=== PATIENT | female | born 1950 | race Caucasian/White ===

== ENCOUNTER → 2023-09-29 11:12 | Outpatient (REF) | payer MEDICARE, OTHER, SELFPAY | LOC: RAD 11:12 | PROVIDERS: ATTENDING PHYSICIAN Internal Medicine | DX: R05.1 Acute cough (principal) | CPT/HCPCS: 71046 ==

== ENCOUNTER 2023-10-08 03:43 | Inpatient (IN) | payer MEDICARE, OTHER, SELFPAY ==
[2023-10-07 21:05] VITALS: BP 161/68
[2023-10-07] MEDS: TYLENOL 650 MG PO (21:09)
[2023-10-07 21:30] LABS: % Basophils 0.3 % (0-2); % Eosinophils 3.2 % (0-6); % Immature Granulocytes 0.4 % (0-0.5); % Lymphocytes 11.6 % (20.5-51.1); % Monocytes 7.3 % (1.7-9.3); % Neutrophils 77.2 % (42.2-75.2); Absolute Eosinophils 0.5 10^3/uL (0-0.7); Absolute Immature Granulocytes 0.1 10^3/uL (0-0.05); Absolute Lymphocytes 1.7 10^3/uL (1.2-3.4); Hematocrit 35.4 % (37.0-47.0); Mean Corp Hgb Conc. 33.9 g/dL (33.0-37.0); Mean Corpuscular Hgb 28.8 pg (27.0-31.0); Mean Corpuscular Volume 84.9 fL (81.0-99.0); Mean Platelet Volume 8.4 fL (7.4-10.4); Nucleated Red Blood Cells % 0 %; Platelet Count 287 10^3/uL (130-400); Red Blood Cell Count 4.17 10^6/uL (4.20-5.40); Red Cell Dist. Width 13.7 % (11.5-14.5); White Blood Cell Count 14.2 10^3/uL (4.8-10.8)
[2023-10-07 21:49] LABS: ALT (SGPT) 33 U/L (0-35); AST (SGOT) 28 U/L (14-36); Albumin 3.4 g/dl (3.5-5.0); Alkaline Phosphatase 83 U/L (38-126); Blood Urea Nitrogen 15 mg/dl (7-17); Calcium 8.9 mg/dl (8.4-10.2); Carbon Dioxide 32 mmol/L (22-30); Chloride 98 mmol/L (98-107); Glucose 110 mg/dl (70-99); Potassium 3.5 mmol/L (3.5-5.1); Sodium 137 mmol/L (135-145); Total Protein 6.2 g/dl (6.3-8.2); eGFR > 60.00
--- NOTE | 2023-10-07 23:10 | ED.GENMED ---
History of Present Illness
General
Chief Complaint: Breathing Problem
Source: patient
Exam Limitations: none
Time Seen by Provider: 10/07/23 22:56
Travel History
Have you had any contact with someone who has COVID-19?: No
Do you have any symptoms of coronavirus? Fever > 100 degrees, chills, cough, shortness of breath, sore throat, loss of taste or smell, muscle aches, or headache?: No
History of Present Illness
History of Present Illness:
This is a 73 year old female that comes in with c/o Fever, cough and left sided rib pain. States that she has been sick since Sep 07. States that the PCP was treating her for a sinus infection and gave her Amoxicillin. States that she also had a
Upper respiratory infection. States that she had several relapses. States that she saw the PCP the end of Sep and she felt that maybe she just had inflammation in the chest and place her on a steroid taper. States that she was told to wait for a
chest X-ray until 7-10 days had past. States that last night when she was in bed she heard something pop in the left chest and has had pain there ever since. States that she has also been using Mucinex Fast Max. States that she has a fever, chest
pain, SOB, headache and lightheadedness. Denies any chills, abd pain, nausea, vomiting, diarrhea, dizziness, urinrary burning.
Past History
Past History
ED Past Medical History: Asthma (illness induced asthma), GERD, HTN, Hypercholesterolemia, Psychiatric (Anxiety, Depression) and Other (Thyroid nodules , Chronic cough, )
ED Past Surgical History: Other (Deviated septum, Left eye surgery)
Social History
Tobacco: 2nd hand smoke exposure
Alcohol: Occasional
Drug: None
Personal:
Living: with family
Employment: Employed
Family History
Family History: Diabetes; Negative Early CAD
Review of Systems
Review of Systems
All Other Systems: ROS reviewed and negative except as documented in HPI and ROS
Constitutional: Reports fever; Denies chills
EENT: Reports no symptoms
Respiratory: Reports cough and trouble breathing
Cardiac: Reports chest pain
ABD/GI: Reports no symptoms; Denies abdominal pain, nausea, vomiting or diarrhea
: Reports no symptoms; Denies dysuria, frequency or urgency
Musculoskeletal: Reports no symptoms
Skin: Reports no symptoms
Neurological: Reports other (Lightheaded); Denies dizzy or headache
Psychiatric: Reports no symptoms
Phy Exam
General Physical Exam
General Presentation: mild distress
General age: appears stated age
General Skin: warm and dry
General Habitus: elderly
General Mental: alert
General Hydration: appears well hydrated
ENT Exam
ENT Exam: TM's normal, pharynx normal and neck supple
Eye Exam
Eye Exam: EOMI
Cardiovascular Exam
Cardiovascular Exam: regular rate/rhythm, no edema and normal peripheral pulses
Pulmonary Exam
Pulmonary Exam: no respiratory distress, chest non tender, no rhonchi, no wheezing and other (Fine crackles right base)
Gastrointestinal Exam
Gastrointestinal Exam: normal bowel sounds, non tender, soft, no organomegaly, no pulsatile mass and non distended
Musculoskeletal Exam
Musculoskeletal Exam: full ROM and no edema
Skin Exam
Skin Exam: normal color, warm/dry, no rash and no petechia
Psychiatric Exam
Psychiatric Exam: normal mood/affect
Scores
Heart Failure Risk
Heart Failure Risk Score: Not Applicable
Course
Orders/Labs/Results
Orders:
Orders
10/07/23 21:06
CR Chest - 2 Views Urgent
Comment:
Reason For Exam: respiratory distress
10/07/23 21:08
Acetaminophen [Tylenol] 650 mg PO NOW STA
10/07/23 21:09
Acetaminophen [Tylenol] 650 mg .ROUTE .STK-MED ONE
10/07/23 21:24
Complete Blood Count/With Diff Urgent
Comprehensive Metabolic Panel Urgent
10/07/23 23:15
Diphenhydramine [Benadryl] 50 mg IV NOW STA
Hydrocortisone Sod Succinate [Solu-Cortef] 200 mg IV NOW STA
10/07/23 23:25
Electrocardiogram (*1) Urgent
Reason for Study: Chest Pain
EKG- Treatment ONCE
10/07/23 23:40
Lactic Acid Urgent
Troponin I Urgent
Blood Culture Q30M
[facility] Source: Blood/Venous
Specimen Description:
10/08/23 01:00
CT Chest Pe Study Urgent
Reason For Exam: SOB, Cough, Fever Chest pain,
10/08/23 01:27
Blood Culture Q30M
[facility] Source: Blood/Venous
Specimen Description:
Abnormal Lab Results
10/07/23 10/07/23
21:24 23:40
WBC 14.2 H 10^3/uL
(4.8-10.8)
RBC 4.17 L 10^6/uL
(4.20-5.40)
Hct 35.4 L %
(37.0-47.0)
Abs Immat Gran (auto) 0.1 H 10^3/uL
(0-0.05)
Absolute Neuts (auto) 11.0 H 10^3/uL
(1.4-6.5)
Absolute Monos (auto) 1.0 H 10^3/uL
(0.1-0.6)
Neutrophils % 77.2 H %
(42.2-75.2)
Lymphocytes % 11.6 L %
(20.5-51.1)
Carbon Dioxide 32 H mmol/L
(22-30)
Glucose 110 H mg/dl
(70-99)
Lactic Acid 0.6 L mmol/L
(0.7-2.0)
Total Protein 6.2 L g/dl
(6.3-8.2)
Albumin 3.4 L g/dl
(3.5-5.0)
10/07/23 21:24
10/07/23 21:24
Leukocytosis, Carbon dioxide slightly elevated. Glucose nonfasting. Total Protein very slightly low. Albumin very slightly low.
Lactic acid normal at 0.6, troponin <0.012
Vital Signs
Initial and Last Documented VS:
Initial Vital Signs
Temp Pulse Resp BP Pulse Ox
101.1 F H 95 20 161/68 97
10/07/23 21:05 10/07/23 21:05 10/07/23 21:05 10/07/23 21:05 10/07/23 21:05
Last Documented Vital Signs
Temp Pulse Resp BP Pulse Ox
98.4 F 79 17 116/62 95
10/08/23 00:06 10/08/23 01:31 10/08/23 01:31 10/08/23 01:31 10/08/23 01:34
MDM/Problems Addressed
Differential Diagnosis Includes:
PNA, PE,
MDM/Problems Addressed:
This is a 73 year old female that comes in with c/o fever, SOB and left sided rib pain. States that she has been sick since Sep 07. States that she has been on antibiotics and steroid and she is getting worse. States that she is on a steroid taper
at this time. Then last night she heard a pop when she was in bed when she was coughing.
Will get labs, CT chest.
Back into see patient. Explained that her CT shows multiple things. She is negative for PE but there is a pericarditis which is most likely due to a viral illness and a small pericaridial effusion. Also as stated by the Doctor from [facility] there
is mild Pulmonary edema, bilateral pleural effusions. Will give patient Lasix and Toradol and admit. Hospitalist notified.
Chronic conditions affecting care: Asthma
Acute Exacerbation and/or Progression of Chronic Illness: Asthma
*Radiology
Radiology exam reviewed: radiology read reviewed (CT chest [facility]- Technically adequate quality of the contrast bolus. No evidence of acute pulmonary embolus. Small circumferential pericardial effusion with epipericardial fat stranding. Reactive
mediastinal lymph noes. Findings suggest an acute pericarditis. Small left and trace right layering ), all reviewed NAD by ED Provider (CT cont- layering pleural effusions. MIld compressive atelectasis of the left lower lobe. No evidence of
pneumonia. NOrmal heart size. No coronary artery calcification. Normal caliber and contour of the thoracic aorta. No acute osseous abnormality. Chronic-appearing T12 superior endplate compression) and other (C cont- deformity. The visualized upper
abdomen demonstrates an acute abnormality)
*Pulse Oximetry
Patient hypoxic: yes
Comment: 90% on room air
*Critical Care Note
Total Time (30-74mins, 75-104mins- exclusive of procedures): Not Applicable
ED Attending Note
-
Portions of this chart may have been created with voice recognition software.� Occasional wrong word or��sound alike� substitutions may have occurred due to the inherent limitations of voice recognition software.
Discharge Plan
Departure
Patient Disposition: Admit
Date of Disposition: 10/08/23
Time of Disposition: 02:21
Admit to: Telemetry
Presentation/result/management discussed w/ accepting MD/DO: Hospitalist
Patient with high blood pressure during this ER visit?: No
Condition: Good
Covid-19: Negative COVID-19
Discharge Problem:
Pericarditis, MIld Pulmonary edema, Pleural effusion, Small pericardial effusion
Prescriptions:
No Action
multivitamin [Multi-Day] 1 EACH tablet
1 ea PO DAILY
lutein 20 MG capsule
25 mg PO DAILY
Meli
1 tab PO PRN PRN (Reason: allergy)
Aspirin
81 mg PO DAILY
Calcium
2 tab PO DAILY
Fish Oil
1 tab PO BID
HydrALAZINE
1 tab PO DAILY
Lexapro:
10 mg PO DAILY
Potassium Chloride
1 tab PO DAILY
Co Q-10
1 tab PO DAILY
methylprednisolone [Medrol ([place])] 4 MG tablets,dose pack
4 tab PO . DIRECT Qty: 1 0RF
albuterol sulfate [Proventil HFA] 90 MCG/PUFF HFA aerosol inhaler
1 puff inhalation Q4HPRN PRN (Reason: shortness of breath) Qty: 1 0RF
sulfamethoxazole-trimethoprim 1 TABLET tablet
1 tab PO BID Qty: 14 0RF
metronidazole 500 MG tablet
500 mg PO TID Qty: 21 0RF
Referrals:
Coleen Chowdhury MD [Family Provider] -
Interventions
Interventions:
*Risk Screen - Suicide Last Done: 10/07/23 21:05
*General Assessment Last Done: 10/07/23 21:05
*Neglect/Abuse Screening Last Done: 10/07/23 21:05
*ED COVID-19 Vaccine History Last Done: 10/08/23 01:31
ED- Cardiac Assessment Last Done: 10/08/23 00:34
ED- Pulmonary Assessment Last Done: 10/08/23 01:38
[2023-10-07] MEDS: SOLU-CORTEF 200 MG IV (23:58)
[2023-10-07] MEDS: BENADRYL 50 MG IV (23:58)
[2023-10-08] VITALS (16 sets, daily range): BP systolic 79–144; BP diastolic 39–90; BMI 43.9; BMI 42.2
[2023-10-08 00:18] LABS: Lactic Acid 0.6 mmol/L (0.7-2.0)
[2023-10-08 00:30] LABS: Troponin I < 0.012 ng/ml
--- NOTE | 2023-10-08 02:23 | HPS.HSE ---
Family Physician
-
Family Physician: Coleen Chowdhury
Chief Complaint
-
shortness of breath
History of Present Illness
Ms. Fatuma Styles is a 73 yo woman with hx asthma, GERD, HTN, HLD, anxiety/depression who presents to the ER with complaint of chest tightness and cough x 1 month. Patient was seen by PCP one month ago. Flu and covid testing negative. She was
thought to have bronchitis and given amoxicillin. Patient reports slight improvement initially and then full return of symptoms. She was then prescribed a prednisone course which is now complete. She has not been checked her temperature at home.
The chest tightness has persisted and increased today causing her to come to the ER. Associated with shortness of breath. + pleuritic chest pain. + intermittent headaches; she has been taking NSAIDs.
No nausea/vomiting/diarrhea. No new rash.
Medical History
Past Medical History
Past Medical History: Reports Other ( asthma, GERD, HTN, HLD, anxiety/depression)
Past Surgical History: Reports Other (deviated septum, left eye surgery )
Social History
Tobacco: Other (2nd hand smoke exposure )
Alcohol: Occasional
Family History
Family History: Not pertinent
Allergies / Home Medications
Allergies reflects when Allergies were last updated in [facility].
Home Medications with original date entered in [facility]
Allergy/Medication List:
Allergies
Allergy/AdvReac Type Severity Reaction Status Date / Time
amoxicillin [From Augmentin] Allergy Unknown Verified 10/07/23 23:47
clavulanic acid Allergy Unknown Verified 10/07/23 23:46
[From Augmentin]
Iodinated Contrast Media Allergy Hives Verified 10/07/23 23:46
[Iodinated Contrast Media -
IV Dye]
iohexol Allergy Hives Verified 10/07/23 23:56
levofloxacin [From Levaquin] Allergy Rash Verified 10/07/23 23:46
Tetracyclines Allergy Unknown Verified 10/07/23 23:46
Home Medications
lutein 20 mg capsule 25 mg PO DAILY 06/19/16
multivitamin (Multi-Day tablet) 1 ea PO DAILY 06/19/16
Meli 1 tab PO PRN PRN allergy 12/24/17
Aspirin 81 mg PO DAILY 12/24/17
Calcium 2 tab PO DAILY 12/24/17
Co Q-10 1 tab PO DAILY 12/24/17
Fish Oil 1 tab PO BID 12/24/17
HydrALAZINE 1 tab PO DAILY 12/24/17
Lexapro: 10 mg PO DAILY 12/24/17
Potassium Chloride 1 tab PO DAILY 12/24/17
albuterol sulfate 90 mcg/actuation aerosol inhaler (Proventil HFA) 1 puff inhalation Q4HPRN PRN shortness of breath ##1 12/24/17
methylprednisolone 4 mg tablets in a dose pack (Medrol ([place])) 4 tab PO . DIRECT ##1 12/24/17
metronidazole 500 mg tablet 500 mg PO TID #21 tabs 05/24/20
sulfamethoxazole 800 mg-trimethoprim 160 mg tablet 1 tab PO BID #14 tabs 05/24/20
Review of Systems
-
History Source: Patient
A 12 point ROS was completed and negative except as noted: Yes
Physical Exam
Vital Signs
Vital Signs
Temp Pulse Resp BP Pulse Ox
98.4 F 79 17 116/62 95
10/08/23 00:06 10/08/23 01:31 10/08/23 01:31 10/08/23 01:31 10/08/23 01:34
Physical Exam
General: No Apparent Distress and Conversant
HEENT: PERRLA
Respiratory: Clear; No Wheezes
Cardiac: Regular Rhythm
GI: Soft and Non Tender
Musculoskeletal: No Edema
Skin: Warm and Dry; No Rash
Neuro: AO x 3
Psych: Calm
Laboratory Results
-
10/07/23 21:24
10/07/23 21:24
Laboratory Results
Lactic Acid 0.6 mmol/L (0.7-2.0) L 10/07/23 23:40
Total Bilirubin 1.0 mg/dl (0.2-1.3) 10/07/23 21:24
AST 28 U/L (14-36) 10/07/23 21:24
ALT 33 U/L (0-35) 10/07/23 21:24
Alkaline Phosphatase 83 U/L (38-126) 10/07/23 21:24
Troponin I < 0.012 ng/ml 10/07/23 23:40
Data Reviewed
-
Diagnostic Radiology: Report Reviewed by me
Lab Data: Labs Reviewed by me
Impression/Plan
-
Ms. Fatuma Styles is a 73 yo woman with hx asthma, GERD, HTN, HLD, anxiety/depression who presents to the ER with complaint of URI symptoms x one month.
Triage VS: T 101.1, P 95, RR 20, BP 161/68, SpO2 97%
LABS: WBC 14.2, Hg 12.0, PLT 287, Na 137, K+ 3.5, CO2 32, BUN 15, Cr 0.7, Glucose 110, lactate 0.6, liver enzymes WNL, Trop < 0.012
EKG: NSR @ 78, no ST elevation/depresion, t wave flattening
CT Chest: no evidence of acute PE. small circumferential pericardial effusion with epipericardial fat stranding. Reactive mediastinal lymph nodes. Findings suggest an acute pericarditis. Small left and trace right layering pleural effusions.
Mild compressive atelectasis of the left lower lobe. No evidence of pneumonia...
MAR: benadryl and hydrocortisone (pre CT), lasix, toradol and tylenol
Acute pericarditis
Fever
Sepsis
-likely viral origin
-receiving Toradol now, will start standing motrin and colchicine later this morning
-TTE
-cardiology consult
GERD
-start GI PPx, standing protonix
HTN
-SALES ENGINEER ACCOUNT MANAGER HCTZ
HLD
-SALES ENGINEER ACCOUNT MANAGER Lipitor
Anxiety/Depression
-SALES ENGINEER ACCOUNT MANAGER Abilify
-SALES ENGINEER ACCOUNT MANAGER Lexapro
DVT PPx SCD
FULL CODE
[2023-10-08] MEDS: TORADOL 30 MG IV (02:35)
[2023-10-08 06:27] LABS: % Basophils 0.3 % (0-2); % Eosinophils 0.6 % (0-6); % Immature Granulocytes 0.5 % (0-0.5); % Lymphocytes 7.7 % (20.5-51.1); % Monocytes 2.7 % (1.7-9.3); % Neutrophils 88.2 % (42.2-75.2); Absolute Eosinophils 0.1 10^3/uL (0-0.7); Absolute Immature Granulocytes 0.1 10^3/uL (0-0.05); Absolute Lymphocytes 0.9 10^3/uL (1.2-3.4); Absolute Monocytes 0.3 10^3/uL (0.1-0.6); Absolute Neutrophils 9.8 10^3/uL (1.4-6.5); Hematocrit 35.3 % (37.0-47.0); Hemoglobin 11.7 g/dL (12.0-16.0); Mean Corp Hgb Conc. 33.1 g/dL (33.0-37.0); Mean Corpuscular Hgb 28.5 pg (27.0-31.0); Mean Corpuscular Volume 86.1 fL (81.0-99.0); Mean Platelet Volume 8.7 fL (7.4-10.4); Nucleated Red Blood Cells % 0 %; Platelet Count 267 10^3/uL (130-400); Red Cell Dist. Width 13.6 % (11.5-14.5); White Blood Cell Count 11.1 10^3/uL (4.8-10.8)
[2023-10-08 06:31] LABS: Blood Urea Nitrogen 17 mg/dl (7-17); Carbon Dioxide 30 mmol/L (22-30); Chloride 99 mmol/L (98-107); Estimated Creatinine Clearance 89 ml/min; Glucose 152 mg/dl (70-99); Magnesium 2.4 mg/dl (1.6-2.3); Potassium 3.9 mmol/L (3.5-5.1); Sodium 137 mmol/L (135-145); eGFR > 60.00
[2023-10-08 06:45] LABS: Procalcitonin < 0.05 ng/ml (0.0-0.25)
[2023-10-08] MEDS: PROTONIX 40 MG PO (07:46)
[2023-10-08] MEDS: COLCHICINE 0.599999999999999978 MG PO ×2 (07:47→20:51)
[2023-10-08] MEDS: LIPITOR 10 MG PO (07:48)
[2023-10-08] MEDS: LEXAPRO 20 MG PO (07:49)
[2023-10-08] MEDS: ORETIC PO (07:49)
--- NOTE | 2023-10-08 07:50 | EDRN ---
Cornell PA states HOLD HCTZ
--- NOTE | 2023-10-08 08:04 | CON.CAR ---
Addendum entered and electronically signed by Brissa Mejia DO 10/08/23 18:26:
I saw and examined the patient.
The Director Medical Safety's note was reviewed and I agree with the note.
Comment: Patient is a 73-year-old female with past medical history of hypertension, hyperlipidemia, anxiety/depression, fatty liver disease, obstructive sleep apnea, asthma who presented to [facility] due to multiple complaints over the
last month. States she started with URI/sinusitis symptoms on 09/07/23. She was started by PCP on amoxicillin. During her 10 day abx course, she states she 'relapsed' with worsening symptoms 2 separate times. One week after abx was seen again by PCP
and placed on prednisone taper. She finished this on Thursday. She has been coughing and states she developed L sided chest discomfort with a 'popping' sensation several days ago. Some pleuritic component as well. She has been using nebs and mucinex.
She has also had recurrence of fevers. CT chest negative for PE however shows small B/L pleural effusions and findings concerning for pericarditis with small pericardial effusion. Covid and flu negative. Cardiology consulted for evaluation.
General:�No Apparent Distress, Comfortable on RA
HEENT:�Normocephalic, Anicteric, mmm
Respiratory:�bronchovesicular BS, clear
Cardiac:�S1/S2 and Regular Rhythm no murmur or rub
GI:�Soft, Non Tender, Non Distended and Normal Bowel Sounds
Musculoskeletal:�No Edema. no rash
Neuro:�AO x 3
Echocardiogram with IV Definity: Normal left ventricular chamber size. Normal left ventricular systolic function. Normal regional wall motion. Mild concentric left ventricular hypertrophy. Left ventricular ejection fraction is 55-60% by Morin's
method of discs. Normal diastolic function. Mild tricuspid regurgitation. Small pericardial effusion with no echocardiographic evidence of hemodynamics �compromise.
�
Plan:
Patient is a 73-year-old female who presents due to 1 month of upper respiratory symptoms with negative COVID/Flu testing s/p 10 day amoxicillin course and prednisone taper presents with left-sided chest pain worse with deep inspiration and movement
suggestive of pericarditis with elevated CRP/ESR with pericardial effusion noted on CT and echo imaging
-Cardiac troponin undetectable, proBNP not elevated
-Small pericardial effusion without hemodynamic compromise
-CTA negative for pulmonary embolism, aortic pathology or pneumonia/Pro-[place] negative
-Continue Motrin 600 mg 3 times daily and colchicine 0.6 mg twice daily
-CT scan with small bilateral pleural effusions with proBNP not significantly elevated at 391
-Activity restrictions reviewed
-Outpatient cardiac follow-up to be arranged with Dr. Brown
-Discharge planning per primary
Original Note:
Consultation
Consultation Request
Date/Time Consultation Performed: 10/08/23
Requesting Provider: Dr. Taylor
Performing Provider: Una Alston PA-C for Dr. Mejia
Reason for Consultation: pericarditis
Medical History
-
Chief Complaint: fever, cough, CP
History of Present Illness:
Patient is a 73-year-old female with past medical history of hypertension, hyperlipidemia, anxiety/depression, fatty liver disease, obstructive sleep apnea, asthma who presented to [facility] due to multiple complaints over the last month.
States she started with URI/sinusitis symptoms on 09/07/23. She was started by PCP on amoxicillin. During her 10 day abx course, she states she 'relapsed' with worsening symptoms 2 separate times. One week after abx was seen again by PCP and placed on
prednisone taper. She finished this on Thursday. She has been coughing and states she developed L sided chest discomfort with a 'popping' sensation several days ago. Some pleuritic component as well. She has been using nebs and mucinex. She has also
had recurrence of fevers. CT chest negative for PE however shows small B/L pleural effusions and findings concerning for pericarditis with small pericardial effusion. Covid and flu negative. Cardiology consulted for evaluation.
PMH:
HTN
HLD
anxiety/depression
fatty liver
HARPAL
asthma
Past Medical History
Past Medical History: Other (in HPI)
Social History
Tobacco: Non-Smoker
Alcohol: None
Personal:
Living: With Family
Employment: Retired
Family History
Family History: Reviewed & Not Pertinent
Allergies / Home Medications
Allergy/AdvReac Type Severity Reaction Status Date / Time
amoxicillin [From Augmentin] Allergy Unknown Verified 10/07/23 23:47
clavulanic acid Allergy Unknown Verified 10/07/23 23:46
[From Augmentin]
Iodinated Contrast Media Allergy Hives Verified 10/07/23 23:46
[Iodinated Contrast Media -
IV Dye]
iohexol Allergy Hives Verified 10/07/23 23:56
levofloxacin [From Levaquin] Allergy Rash Verified 10/07/23 23:46
Tetracyclines Allergy Unknown Verified 10/07/23 23:46
Medication Instructions Recorded Confirmed Type
lutein 20 mg capsule 25 mg PO DAILY 06/19/16 10/08/23 History
multivitamin (Multi-Day tablet) 1 ea PO DAILY 06/19/16 10/08/23 History
Aspirin 81 mg PO DAILY 12/24/17 10/08/23 History
Co Q-10 1 tab PO DAILY 12/24/17 10/08/23 History
Lexapro: 20 mg PO DAILY 12/24/17 10/08/23 History
Potassium Chloride 2 tab PO DAILY 12/24/17 10/08/23 History
albuterol sulfate 90 mcg/actuation 1 puff inhalation Q4HPRN PRN 12/24/17 10/08/23 Rx
aerosol inhaler (Proventil HFA) shortness of breath ##1
Qvar RediHaler 80 mcg inhalation Q6HPRN PRN sob 10/08/23 10/08/23 History
aripiprazole 2 mg tablet (Abilify) 2 mg PO DAILY 10/08/23 10/08/23 History
ascorbic acid (vitamin C) 500 mg 500 mg PO BID 10/08/23 10/08/23 History
tablet (Vitamin C)
atorvastatin 10 mg tablet 10 mg PO DAILY 10/08/23 10/08/23 History
calcium 500 mg tablet 1,300 mg PO DAILY 10/08/23 10/08/23 History
cyclosporine 0.05 % eye drops in a 1 drp ophthalmic (eye) Q12H 10/08/23 10/08/23 History
dropperette (Restasis)
dextromethorphan-guaifenesin ER 60 60 - 1,200 tab PO BID 10/08/23 10/08/23 History
mg-1,200 mg tab,extend
release,12hr (Mucinex DM)
fluticasone propionate 50 1 spray intranasal DAILY 10/08/23 10/08/23 History
mcg/actuation nasal
spray,suspension
hydrochlorothiazide 25 mg tablet 25 mg PO DAILY 10/08/23 10/08/23 History
minoxidil 2 % topical solution 2 ml topical Q48H 10/08/23 10/08/23 History
turmeric 400 mg capsule 1,200 mg PO DAILY 10/08/23 10/08/23 History
vitamin B complex tab 10/08/23 History
Review of Systems
-
History Source: Patient
All other systems: Negative unless noted
Physical Exam
Vital Signs
Temp Pulse Resp BP Pulse Ox
98.1 F 75 16 110/75 94
10/08/23 06:55 10/08/23 07:49 10/08/23 06:15 10/08/23 07:49 10/08/23 06:15
Lab Results
10/08/23 05:54
10/08/23 05:53
Troponin I < 0.012 ng/ml 10/07/23 23:40
Physical Exam
General: No Apparent Distress, Comfortable and Other (obese)
HEENT: Normocephalic, Anicteric and Moist Mucous Membranes
Respiratory: Other (decreased BS B/L bases)
Cardiac: S1/S2 and Regular Rhythm
GI: Soft, Non Tender, Non Distended and Normal Bowel Sounds
Musculoskeletal: No Clubbing, No Cyanosis and No Edema
Skin: Warm and Dry
Neuro: AO x 3
Impression / Plan
-
Primary Lathe Setup Operator: Dr. Brown
Assessment:
Cough
CP
Fever
Hypotension
Recent URI
B/L pleural effusions
Concern for acute pericarditis
HTN
HLD
anxiety/depression
fatty liver
HARPAL
asthma
ECHO 10/08/23: pending
Plan:
-Patient is a 73-year-old female who presents due to 1 month of upper respiratory symptoms, as well as now chest pain and fever.
-By CT scan findings concerning for acute pericarditis resulting in cardiology consult
-Echo today
-Troponins serially negative
-Check ESR and CRP
-started on Motrin and colchicine. of note, was on prednisone course recently
-CT scan also with evidence of bilateral pleural effusion. On HCTZ as an outpatient. Check proBNP
-was hypotensive in ER with SBP in 70s, now improved. may hold on diuretic until BP settles out and echo completed. unclear source of hypotension. blood cultures pending. procal negative.
-d/w ER nursing
Data Reviewed
-
EKG: Tracing Personally Visualized and interpreted
CT Scan: Report Reviewed by me
Labs: Labs Reviewed by me
Old Records: Reviewed
[2023-10-08] MEDS: RESTASIS 0.05% OPHTHALMIC EMULSION 1 DROPS OPHTH ×2 (09:17→20:51)
--- NOTE | 2023-10-08 09:19 | W.PN.UPDATE ---
Update Note
Progress Note Update
Patient seen and examined after post midnight admission. Reports chest pain has improved somewhat with NSAID and colchicine. Vital signs stable. No acute distress, awake alert and orient x 3. Regular rate and rhythm, normal S1-S2. Clear to
auscultation bilaterally. Cranial nerves II to XII are intact. Echocardiogram done, read pending. Cardiology following. Continue with colchicine/NSAID.
[2023-10-08 09:38] LABS: Erythrocyte Sed Rate 53 mm/hour (0-20)
[2023-10-08 10:22] LABS: NT-proBNP 391 pg/ml
[2023-10-08 10:28] LABS: TSH Reflex To Free T4 0.46 uIU/ml (0.47-4.68)
[2023-10-08 10:52] LABS: Free T4 1.62 ng/dl (0.78-2.19)
[2023-10-08] MEDS: MOTRIN 600 MG PO ×3 (11:43→21:46)
[2023-10-08] MEDS: ABILIFY 2 MG PO (21:46)
[2023-10-09 03:32] VITALS: BP 120/77
[2023-10-09 07:00] VITALS: BP 126/68
--- NOTE | 2023-10-09 08:37 | W.PN.HOSP.TC ---
Addendum entered and electronically signed by Lino Rodriguez MD 10/09/23 16:03:
Case discussed with Dr. Cabrera. Patient is medically cleared for discharge on 2 weeks of Motrin and 3 weeks of the colchicine. Patient's hydrochlorothiazide will be stopped and replaced with Lasix 40 mg by mouth daily. Regarding the patient's
atrial fibrillation this was likely due to pericarditis that was self-limited. If it had to be categorized right now I would call it Paroxysmal atrial fibrillation. No anticoagulation at this time as patient had a brief self-limited episode of
atrial fibrillation in the setting of acute pericarditis and there was concern for hemorrhagic conversion of the patient's acute pericarditis on anticoagulation. Patient will be set up with an outpatient event monitor.
Total time spent on d/c = 41 min. This included today's physical exam, progress note, review of laboratory and diagnostic data, preparation of discharge documents and prescriptions, and discussions about the pt's hospital course and discharge plan
with the patient and other medical technologist microbiology involved in the patient's care.
Original Note:
Today's Communication/Plan
-
see bold, d/c today if OK with cards
Assessment / Plan
Assessment / Plan
Gen: NAD, AAOx3.
Eyes: EOMI, PERRLA, no scleral icterus.
Neck: supple.
CV: RRR, +S1/S2, no m/r/g.
Resp: CTAB, no rales, wheezes, or rhonchi.
Abd: +BS, soft, NT, ND
Skin: No rashes.
Neuro: CN 2-12 intact, non-focal.
Psych: Normal mood and affect.
Echo: Technically difficult study - Definity used.
�Normal left ventricular chamber size. Normal left ventricular systolic
�function. Normal regional wall motion. Mild concentric left ventricular
�hypertrophy. Left ventricular ejection fraction is 55-60% by Morin's method
�of discs. Normal diastolic function.
�Mild tricuspid regurgitation.
�Small pericardial effusion with no echocardiographic evidence of hemodynamic
�compromise.
Acute pericarditis:
-sepsis, likely viral
-cont motrin/colchicine
-cardiology following
Other problems:
Morbid obesity due to excess calories: Encourage weight loss, affects all aspects of care
GERD: cont PPI
Essential HTN: cont HCTZ
HLD: cont Lipitor
Anxiety/Depression: cont Abilify/Lexapro
FULL/SCD
Anticipated Discharge: Within 24 hours
Subjective/Interval History
-
Date of Service: October 09, 2023
'I have no pain.'
Objective Data
-
Vital Signs:
Vital Signs
Temp Pulse Resp BP Pulse Ox
98.1 F 78 14 126/68 92
10/09/23 07:00 10/09/23 07:00 10/09/23 07:00 10/09/23 07:00 10/09/23 07:00
I&O
10/08/23 10/09/23 10/10/23
06:59 06:59 06:59
Intake Total 960 / 960
Balance 960 / 960
[2023-10-09] MEDS: ORETIC 25 MG PO (08:53)
[2023-10-09] MEDS: COLCHICINE 0.599999999999999978 MG PO ×2 (08:54→18:11)
[2023-10-09] MEDS: PROTONIX 40 MG PO (08:54)
[2023-10-09] MEDS: LIPITOR 10 MG PO (08:54)
[2023-10-09] MEDS: MOTRIN 600 MG PO ×2 (08:55→15:44)
[2023-10-09] MEDS: RESTASIS 0.05% OPHTHALMIC EMULSION 1 DROPS OPHTH (08:55)
--- NOTE | 2023-10-09 11:30 | CM ---
Addendum entered by Malini Potter RN 10/09/23 15:57:
IMM signed and placed on the chart.
Original Note:
Reviewed the chart notes and spoke with the patient at the bedside. The patient resides with her spouse in a one story home with three steps to enter. The patient has a nebulizer and CPAP in home. The patient reports no VN or SNF in the past.
The patient confirmed her pharmacy of choice is the [facility]. CM continues to be available to patient/family and is monitoring medical plan for needs at discharge.
Plan: Discharge to home when medically stable with no additional needs being identified at this time.
--- NOTE | 2023-10-09 12:30 | PTCARENOTE ---
Pt went into a rapid afib on tele monitor for a brief moment while walking in the bathroom. Pt converted back to NSR, cardiology made aware. Pt asymptomatic, no new orders at this time.
[2023-10-09] MEDS: LOPRESSOR 12.5 MG PO ×2 (12:58→18:11)
--- NOTE | 2023-10-09 13:02 | W.PN.CARDCBS ---
Addendum entered and electronically signed by Thomas Cabrera MD 10/09/23 15:56:
Continue colchicine for 3 months and Motrin for 2 weeks.
Original Note:
Today's Communication / Plan
-
add low dose lopressor with brief afib
check outpt monitor
Consider anticoagulation if recurrent A-fib as an outpatient but hopefully this is all due to inflammation from pericarditis
Stable cardiology status for discharge if able to ambulate without issues and no hypoxemia
Impression / Plan
-
Primary Coal Drier Operator: Dr. Brown
Assessment:
Cough
Pericarditis
Fever
Recent URI
B/L pleural effusions
HTN
HLD
anxiety/depression
fatty liver
HARPAL
asthma
ECHO 10/08/23: Ejection fraction 55 to 60%, small pericardial effusion
Plan:
[place] to have pericarditis which has resolved with treatment with Motrin and colchicine
Brief episodes of atrial fibrillation which is asymptomatic
Reluctant to anticoagulate with risk for hemorrhagic transformation of pericardial effusion
Will do outpatient monitor and if recurrent A-fib may consider outpatient anticoagulation. Hopefully afib is due to inflammation from pericarditis and will resolve with treatment
Will add low-dose Lopressor
Stable cardiology status for discharge
CT scan also with evidence of bilateral pleural effusion. On HCTZ as an outpatient. proBNP close to normal at 391.
No signs or symptoms of CHF at present. Could consider changing hydrochlorothiazide to Lasix as an outpatient
Discussed with primary service
Progress Note - Coal Drier Operator
Subjective
Date of Service: October 09, 2023
Complains of cough. Chest pain has resolved. Telemetry with brief episodes of atrial fibrillation.
Objective
Labs:
10/08/23 05:54
10/08/23 05:53
Labs
Hgb 11.7 g/dL (12.0-16.0) L 10/08/23 05:54
Hct 35.3 % (37.0-47.0) L 10/08/23 05:54
Plt Count 267 10^3/uL (130-400) 10/08/23 05:54
Sodium 137 mmol/L (135-145) 10/08/23 05:53
Potassium 3.9 mmol/L (3.5-5.1) 10/08/23 05:53
BUN 17 mg/dl (7-17) 10/08/23 05:53
Creatinine 0.7 mg/dL (0.6-1.0) 10/08/23 05:53
Glucose 152 mg/dl (70-99) H 10/08/23 05:53
Troponins
10/07/23
23:40
Troponin I < 0.012
Vital Signs and I&O:
Vital Signs
Temp Pulse Resp BP Pulse Ox
98.1 F 78 14 126/68 92
10/09/23 07:00 10/09/23 08:53 10/09/23 07:00 10/09/23 08:53 10/09/23 10:10
Vital Signs
Temp Pulse Resp BP Pulse Ox
98.1 F 78 14 126/68 92
10/09/23 07:00 10/09/23 08:53 10/09/23 07:00 10/09/23 08:53 10/09/23 10:10
Intake & Output
10/07/23 10/08/23 10/09/23 10/10/23
06:59 06:59 06:59 06:59
Intake Total 960 / 960
Balance 960 / 960
Physical Exam
Physical Exam
General: Well developed, well nourished in NAD.
Neck: Supple, no JVD, HJR, carotids +2 B/L, no bruits bilaterally.
Heart: Non displaced PMI, RRR, no murmurs, No S3, S4, no rubs.
Lungs: Clear to auscultation bilaterally, no wheeze, rhonchi, rubs bilaterally,
normal expiratory phase.
Extremities: No clubbing, cyanosis or edema bilaterally.
Neuro: Grossly nonfocal, awake, alert and oriented x3.
[2023-10-09 13:03] VITALS: BP 134/60
[2023-10-09 15:00] VITALS: BP 128/68
--- NOTE | 2023-10-09 17:31 | W.DCSUMMARY ---
Discharge Summary
Discharge Data
Date of Admission: 10/08/23
Date of Discharge: 10/09/23
-
Pending Results: No
Hospital Course
Primary diagnoses:
Acute pericarditis, likely viral
Sepsis, likely due to acute viral pericarditis
Brief, paroxysmal atrial fibrillation, likely due to acute viral pericarditis
Secondary diagnoses:
Morbid obesity due to excess calories
Gastroesophageal reflux disease
Essential hypertension
Hyperlipidemia
Anxiety
Depression
Consultants:
Cardiology
Imaging:
Echo: Technically difficult study - Definity used.
�Normal left ventricular chamber size. Normal left ventricular systolic
�function. Normal regional wall motion. Mild concentric left ventricular
�hypertrophy. Left ventricular ejection fraction is 55-60% by Morin's method
�of discs. Normal diastolic function.
�Mild tricuspid regurgitation.
�Small pericardial effusion with no echocardiographic evidence of hemodynamic
�compromise.
CTA chest: No evidence of pulmonary embolism. Findings suspicious for acute pericarditis. Small left and trace right pleural effusion.
73-year-old female who presented with chief complaint of shortness of breath as outlined in the H&P done on admission. Hospital course by problem list:
Acute pericarditis: The patient met sepsis criteria and this was due to acute pericarditis which was likely viral. She was placed on Motrin and colchicine and her pain resolved. Echocardiogram above. The patient was seen in consultation by
cardiology. She was discharged on 2 weeks of Motrin and 3 months of colchicine. Patient had a brief run of atrial fibrillation which was likely due to acute pericarditis. Anticoagulation was not recommended as there would be risk of hemorrhagic
conversion of her pericarditis. An outpatient event monitor is being arranged for the patient.
Discharge Plan
-
Patient Disposition: Home (Routine Discharge)
Discharge Diagnosis/Procedures: Acute pericarditis, likely viral
Condition: Good
Diet: Other diet
Additional Diets: Heart healthy
Activity: As tolerated
Driving Restrictions: As prior to admission
Others Tests: 5 day site monitor, cardiology office to call you Thursday10/12/23 with date/time to report for placement
Referrals:
Meeta Dempsey PA-C [Specified Professional Personl] - 11/09/23 8:40 am (You have a cardiology follow-up appointment at the [place] office with Dr. Brown's physician care management assistant, Meeta. Please call with questions)
Coleen Chowdhury MD [Family Provider] - in less than 1 week
Prescriptions:
New
pantoprazole 40 mg Tablet,Delayed Release (Dr/Ec)
40 mg PO DAILY Qty: 30 0RF
ibuprofen 600 mg Tablet
600 mg PO TID 14 Days Qty: 42 0RF
colchicine 0.6 mg Tablet
0.6 mg PO BID 90 Days Qty: 180 0RF
metoprolol tartrate 25 mg Tablet
12.5 mg PO BID Qty: 60 0RF
furosemide [Lasix] 40 mg tablet
40 mg PO DAILY Qty: 30 0RF
Continued
atorvastatin 10 mg Tablet
10 mg PO HS
aripiprazole [Abilify] 2 mg Tablet
2 mg PO HS
ascorbic acid (vitamin C) [Vitamin C] 500 mg Tablet
500 mg PO BID
fluticasone propionate 50 mcg/actuation [place],Suspension
1 spray INTRANASAL DAILY PRN (Reason: allergies)
cyclosporine [Restasis] 0.05 % Dropperette
1 drp BOTH EYES BID
ketoconazole 2 % Shampoo
1 applic TOPICAL .2-3 TIMES A WEEK
therapeutic multivitamin Tablet
1 tab PO DAILY
artificial tears ointment Ointment
1 applic BOTH EYES HSPRN PRN (Reason: dry eyes)
aspirin 81 mg Tablet,Chewable
81 mg PO Q48H@0800
vitamin B complex Tablet
1 tab PO DAILY
fluocinonide 0.05 % Solution
1 applic TOPICAL .3 TIMES A WEEK
albuterol sulfate 90 mcg/actuation Hfa Aerosol Inhaler
2 puff INHALATION R Q6HPRN PRN (Reason: sob)
escitalopram oxalate 20 mg Tablet
20 mg PO HS
coenzyme Q10 [CoQ-10] 100 mg Capsule
100 mg PO DAILY
potassium chloride 10 mEq Tablet,Er Particles/Crystals
20 meq PO DAILY
cholecalciferol (vitamin D3) 50 mcg (2,000 unit) Tablet
50 mcg PO HS
Qvar RediHaler 80 mcg/actuation Hfa Aerosol Breath Activated
2 inh INHALATION R BID
Mucinex Fast-Max
2 tab PO Q6H
calcium
1,300 mg PO HS
lutein
25 mg PO DAILY
albuterol sulfate 2.5 mg /3 mL (0.083 %) Solution For Nebulization
2.5 mg INHALATION R Q6HPRN PRN (Reason: sob)
Discontinued
hydrochlorothiazide 25 mg Tablet
25 mg PO DAILY
turmeric 400 mg Capsule
1,200 mg PO DAILY
naproxen sodium [Aleve] 220 mg Tablet
440 mg PO HSPRN PRN (Reason: mild pain)
naproxen sodium [Aleve] 220 mg Tablet
220 mg PO DAILYPRN PRN (Reason: headache)
Discharge Orders:
Discharge Patient (As Directed); Ordered 10/09/23
Ordered By: Lino Rodriguez
== END 2023-10-09 18:21 | disposition home or self-care (01) | DRG 872 ==
LOC: 2 NORTH 03:43
PROVIDERS: Clinical Nurse Specialist Family Health; Emergency Medicine; ADMITTING PHYSICIAN Student in an Organized Health Care Education/Training Program; ATTENDING PHYSICIAN Internal Medicine; EMERGENCY PHYSICIAN Emergency Medicine; FAMILY PHYSICIAN Internal Medicine; OTHER PHYSICIAN Internal Medicine Cardiovascular Disease
DX: A41.9 Sepsis, unspecified organism (principal); I30.1 Infective pericarditis; I31.39 Other pericardial effusion (noninflammatory); J81.1 Chronic pulmonary edema; Z68.41 Body mass index [BMI] 40.0-44.9, adult; K21.9 Gastro-esophageal reflux disease without esophagitis; I11.9 Hypertensive heart disease without heart failure; E78.00 Pure hypercholesterolemia, unspecified; F41.9 Anxiety disorder, unspecified; F32.A Depression, unspecified; I48.0 Paroxysmal atrial fibrillation; E66.01 Morbid (severe) obesity due to excess calories; G47.33 Obstructive sleep apnea (adult) (pediatric); K76.0 Fatty (change of) liver, not elsewhere classified; Z79.82 Long term (current) use of aspirin
CPT/HCPCS: 71046; 71275; 80048; 80053; 83605; 83735; 83880; 84145; 84439; 84443; 84484; 85025; 85652; 86140; 87040; 93005; 93306; 96374; 96375; 99285; Q9957; Q9967

== ENCOUNTER 2023-11-01 20:17 | Emergency (ER) | payer MEDICARE, OTHER, SELFPAY ==
[2023-11-01 20:19] VITALS: BP 143/68
[2023-11-01 21:51] VITALS: BP 134/65
[2023-11-01 21:52] VITALS: BMI 40.6
--- NOTE | 2023-11-01 23:01 | ED.GENMED ---
History of Present Illness
General
Chief Complaint: Breathing Problem
Source: patient
Exam Limitations: none
Time Seen by Provider: 11/01/23 22:45
Nursing documentation reviewed up to this point in time: agreed with
Travel History
Have you had any contact with someone who has COVID-19?: No
Do you have any symptoms of coronavirus? Fever > 100 degrees, chills, cough, shortness of breath, sore throat, loss of taste or smell, muscle aches, or headache?: No
History of Present Illness
History of Present Illness:
Pleasant 73-year-old female who presents with breathing difficulty. She states that she has been feeling short of breath with chest pain on inspiration since last evening. Patient does have a history of asthma and states that this occurs when she
has an asthma attack. She has been using her inhaler and home nebulizer with minimal to no improvement. Patient does report chest pain with deep inspiration. She states that she has had several such episodes since September and has not had a
definitive etiology.. Patient denies recent fever. She has been to the emergency department as well as pulmonary care provider several times for similar symptoms. Recently she was admitted for pericarditis.
Past History
Past History
ED Past Medical History: Asthma (illness induced asthma), GERD, HTN, Hypercholesterolemia, Psychiatric (Anxiety, Depression) and Other (Thyroid nodules , Chronic cough, )
ED Past Surgical History: Other (Deviated septum, Left eye surgery)
Social History
Tobacco: 2nd hand smoke exposure
Alcohol: Occasional
Drug: None
Personal:
Living: with family
Employment: Employed
Family History
Family History: Diabetes; Negative Early CAD
Review of Systems
Review of Systems
Allergies reviewed?: Yes
Other source history: family
All Other Systems: ROS reviewed and negative except as documented in HPI and ROS
Respiratory: Reports cough
Cardiac: Reports chest pain
Neurological: Reports no symptoms
Psychiatric: Reports anxiety
Phy Exam
General Physical Exam
General Presentation: well appearing and no apparent distress
General Skin: warm and dry
General Habitus: normal
General Mental: alert
General Hydration: appears well hydrated
ENT Exam
ENT Exam: EOMI, pharynx normal, neck supple and normocephalic
Eye Exam
Eye Exam: PERRL, cornea clear and conjunctiva normal
Cardiovascular Exam
Cardiovascular Exam: regular rate/rhythm, no edema, no murmur and normal peripheral pulses
Pulmonary Exam
Pulmonary Exam: lungs clear, no respiratory distress, no rales, no crackles, no rhonchi, no stridor, no wheezing and no cough
Gastrointestinal Exam
Gastrointestinal Exam: normal bowel sounds, non tender, soft, no organomegaly, no pulsatile mass and non distended
Neurological Exam
Neurological Exam: alert, oriented x3, no motor deficits and speech normal
Musculoskeletal Exam
Musculoskeletal Exam: full ROM and no edema
Skin Exam
Skin Exam: normal color, warm/dry, no rash and no petechia
Psychiatric Exam
Psychiatric Exam: normal mood/affect
Scores
Heart Failure Risk
Heart Failure Risk Score: Not Applicable
Course
Orders/Labs/Results
Orders:
Orders
11/01/23 20:24
Electrocardiogram (*1) Urgent
Reason for Study: Shortness of Breath
EKG- Treatment ONCE
11/01/23 22:59
Urinalysis Reflex To Culture Urgent
Date Specimen was Collected: 11/01/23
Time Specimen was Collected: 23:05
Mag Hydrox/Al Hydrox/Simeth [Maalox] 30 ml Phenobarb/Hyoscy/Atropine/Scop [] 10 ml Viscous Lidocaine 2% [Xylocaine Viscous Cup] 10 ml PO NOW
11/01/23 23:07
Mag Hydrox/Al Hydrox/Simeth [Maalox] 30 ml .ROUTE .STK-MED ONE
Phenobarb/Hyoscy/Atropine/Scop [] 10 ml .ROUTE .STK-MED ONE
Viscous Lidocaine 2% [Xylocaine Viscous Cup] 15 ml .ROUTE .STK-MED ONE
11/01/23 23:19
Complete Blood Count/With Diff Urgent
11/02/23 00:15
Comprehensive Metabolic Panel Urgent
Comment: REDRAW
Lipase Urgent
Urine Microscopic Reflex Cult Urgent
Urine Culture Urgent
FANTA Source: U
Specimen Description:
Date Specimen was Collected: 11/01/23
Time Specimen was Collected: 23:05
11/02/23 00:18
Troponin I Urgent
11/02/23 01:13
CR Chest - 2 Views Urgent
Comment:
Reason For Exam: dyspnea
11/02/23 03:16
Dexamethasone Pf [Decadron] 10 mg PO NOW STA
Abnormal Lab Results
11/01/23 11/02/23
23:19 00:15
WBC 11.5 H 10^3/uL
(4.8-10.8)
Hct 36.4 L %
(37.0-47.0)
RDW 15.3 H %
(11.5-14.5)
Abs Immat Gran (auto) 0.1 H 10^3/uL
(0-0.05)
Absolute Neuts (auto) 8.3 H 10^3/uL
(1.4-6.5)
Absolute Monos (auto) 1.3 H 10^3/uL
(0.1-0.6)
Lymphocytes % 15.8 L %
(20.5-51.1)
Monocytes % 10.9 H %
(1.7-9.3)
Glucose 132 H mg/dl
(70-99)
Ur Occult Blood Reflex Trace A
(Negative)
Leukocyte Esterase Rfl 2+ A
(Negative)
03/31/24 23:19
11/02/23 00:15
Vital Signs
Initial and Last Documented VS:
Initial Vital Signs
Temp Pulse Resp BP Pulse Ox
98.8 F 69 18 143/68 97
11/01/23 20:19 11/01/23 20:19 11/01/23 20:19 11/01/23 20:19 11/01/23 20:19
Last Documented Vital Signs
Temp Pulse Resp BP Pulse Ox
98.8 F 69 18 134/65 97
11/01/23 20:19 11/01/23 20:19 11/01/23 20:19 11/01/23 21:51 11/01/23 21:55
*Critical Care Note
Total Time (30-74mins, 75-104mins- exclusive of procedures): Not Applicable
ED Attending Note
-
Portions of this chart may have been created with voice recognition software.� Occasional wrong word or��sound alike� substitutions may have occurred due to the inherent limitations of voice recognition software.
Discharge Plan
Departure
Patient Disposition: Home (Routine Discharge)
Date of Disposition: 11/02/23
Time of Disposition: 03:16
Patient with high blood pressure during this ER visit?: Yes
Condition: Good
Discharge Problem:
Acute dyspnea
Instructions: Shortness of Breath (Dyspnea) (DC), Shortness of breath (dyspnea), BLOOD PRESSURE
Prescriptions:
New
ipratropium bromide 0.02 % solution
2.5 ml inhalation Q6H PRN (Reason: shortness of breath or wheezing) Qty: 62.5 0RF
albuterol sulfate 1.25 mg/3 mL solution for nebulization
1.25 mg inhalation QID PRN (Reason: shortness of breath or wheezing) Qty: 75 0RF
No Action
atorvastatin 10 mg Tablet
10 mg PO HS
aripiprazole [Abilify] 2 mg Tablet
2 mg PO HS
ascorbic acid (vitamin C) [Vitamin C] 500 mg Tablet
500 mg PO BID
fluticasone propionate 50 mcg/actuation [place],Suspension
1 spray INTRANASAL DAILY PRN (Reason: allergies)
cyclosporine [Restasis] 0.05 % Dropperette
1 drp BOTH EYES BID
ketoconazole 2 % Shampoo
1 applic TOPICAL .2-3 TIMES A WEEK
therapeutic multivitamin Tablet
1 tab PO DAILY
artificial tears ointment Ointment
1 applic BOTH EYES HSPRN PRN (Reason: dry eyes)
aspirin 81 mg Tablet,Chewable
81 mg PO Q48H@0800
vitamin B complex Tablet
1 tab PO DAILY
fluocinonide 0.05 % Solution
1 applic TOPICAL .3 TIMES A WEEK
albuterol sulfate 90 mcg/actuation Hfa Aerosol Inhaler
2 puff INHALATION R Q6HPRN PRN (Reason: sob)
escitalopram oxalate 20 mg Tablet
20 mg PO HS
coenzyme Q10 [CoQ-10] 100 mg Capsule
100 mg PO DAILY
potassium chloride 10 mEq Tablet,Er Particles/Crystals
20 meq PO DAILY
cholecalciferol (vitamin D3) 50 mcg (2,000 unit) Tablet
50 mcg PO HS
Qvar RediHaler 80 mcg/actuation Hfa Aerosol Breath Activated
2 inh INHALATION R BID
Mucinex Fast-Max
2 tab PO Q6H
calcium
1,300 mg PO HS
lutein
25 mg PO DAILY
albuterol sulfate 2.5 mg /3 mL (0.083 %) Solution For Nebulization
2.5 mg INHALATION R Q6HPRN PRN (Reason: sob)
pantoprazole 40 mg Tablet,Delayed Release (Dr/Ec)
40 mg PO DAILY Qty: 30 0RF
ibuprofen 600 mg Tablet
600 mg PO TID 14 Days Qty: 42 0RF
colchicine 0.6 mg Tablet
0.6 mg PO BID 90 Days Qty: 180 0RF
metoprolol tartrate 25 mg Tablet
12.5 mg PO BID Qty: 60 0RF
furosemide [Lasix] 40 mg tablet
40 mg PO DAILY Qty: 30 0RF
Referrals:
Gonzalo Polanco MD [Active] - Next open appointment
Coleen Chowdhury MD [Family Provider] -
Activity Restrictions/Additional Instructions:
Your prescriptions were sent electronically to the pharmacy that you specified.
It was a pleasure meeting you and taking part in your care. We hope for your continued healing and wellness.
Please read discharge instructions in their entirety. However, they are for general education and may not describe your exact diagnosis at discharge. Information on your ER visit and medical conditions were discussed with you along with appropriate
follow up information...
If indicated, please take your medications as instructed and indicated on discharge paperwork.
Please schedule a follow up appointment as directed. Call to schedule an appointment
Please return to the emergency department with ANY change in, persisting, or worsening of symptoms. If any of your symptoms do not improve, or persist, or become more severe within 6-12 hours, please return to the emergency department for further
care.
Please return to the emergency department if you develop a headache, neck pain/stiffness, fever greater than 100.4F, chest pain, shortness of breath, persistent nausea, vomiting, slurred speech, difficulty walking, numbness/tingling, weakness, signs
of infection or any other symptoms that are worrisome to you.
If you have any questions or concerns please do not hesitate to call the Hospital at or E-mail me directly at [email or web address]
Interventions
Interventions:
*Risk Screen - Suicide Last Done: 11/01/23 20:19
*General Assessment Last Done: 11/01/23 20:19
*Neglect/Abuse Screening Last Done: 11/01/23 20:19
ED- Fall Risk Assessment Last Done: 11/01/23 21:55
*ED COVID-19 Vaccine History Last Done: 11/01/23 21:55
ED- Cardiac Assessment Last Done: 11/01/23 21:55
ED- Pulmonary Assessment Last Done: 11/01/23 21:55
Discharge Date and Time
Print Language: DIVEHI
[2023-11-01] MEDS: MAALOX 50 PO (23:13)
[2023-11-02 00:04] LABS: % Basophils 0.3 % (0-2); % Immature Granulocytes 0.4 % (0-0.5); % Lymphocytes 15.8 % (20.5-51.1); % Monocytes 10.9 % (1.7-9.3); % Neutrophils 71.6 % (42.2-75.2); Absolute Eosinophils 0.1 10^3/uL (0-0.7); Absolute Immature Granulocytes 0.1 10^3/uL (0-0.05); Absolute Lymphocytes 1.8 10^3/uL (1.2-3.4); Absolute Monocytes 1.3 10^3/uL (0.1-0.6); Absolute Neutrophils 8.3 10^3/uL (1.4-6.5); Hematocrit 36.4 % (37.0-47.0); Hemoglobin 12.5 g/dL (12.0-16.0); Mean Corp Hgb Conc. 34.3 g/dL (33.0-37.0); Mean Corpuscular Hgb 28.7 pg (27.0-31.0); Mean Corpuscular Volume 83.5 fL (81.0-99.0); Mean Platelet Volume 9.4 fL (7.4-10.4); Nucleated Red Blood Cells % 0 %; Platelet Count 233 10^3/uL (130-400); Red Blood Cell Count 4.36 10^6/uL (4.20-5.40); Red Cell Dist. Width 15.3 % (11.5-14.5); White Blood Cell Count 11.5 10^3/uL (4.8-10.8)
[2023-11-02 00:33] LABS: Urine Albumin Trace (Neg - Trace); Urine Bilirubin Negative (Negative); Urine Character Clear (Clear); Urine Color Yellow; Urine Glucose Negative (Negative); Urine Ketone Negative (Negative); Urine Leukocyte 2+ (Negative); Urine Nitrite Negative (Negative); Urine Occult Blood Trace (Negative); Urine Urobilinogen Negative (Neg - 1+)
[2023-11-02 00:53] LABS: Troponin I < 0.012 ng/ml
[2023-11-02 00:57] LABS: ALT (SGPT) 24 U/L (0-35); AST (SGOT) 27 U/L (14-36); Albumin 3.8 g/dl (3.5-5.0); Alkaline Phosphatase 88 U/L (38-126); Blood Urea Nitrogen 16 mg/dl (7-17); Calcium 9.6 mg/dl (8.4-10.2); Carbon Dioxide 26 mmol/L (22-30); Chloride 102 mmol/L (98-107); Estimated Creatinine Clearance 74 ml/min; Glucose 132 mg/dl (70-99); Lipase 83 U/L (23-300); Potassium 3.8 mmol/L (3.5-5.1); Sodium 136 mmol/L (135-145); Total Bilirubin 0.8 mg/dl (0.2-1.3); Total Protein 6.5 g/dl (6.3-8.2); eGFR > 60.00
[2023-11-02 01:00] LABS: Urine Red Blood Cell 0-2 /HPF (0-2)
[2023-11-02] MEDS: DECADRON 10 MG PO (03:33)
== END 2023-11-02 03:50 | disposition home or self-care (01) ==
LOC: EMR 20:17
PROVIDERS: EMERGENCY PHYSICIAN Student in an Organized Health Care Education/Training Program; FAMILY PHYSICIAN Internal Medicine
DX: R06.00 Dyspnea, unspecified (principal); R07.1 Chest pain on breathing; F41.9 Anxiety disorder, unspecified; I10 Essential (primary) hypertension; E78.00 Pure hypercholesterolemia, unspecified; F32.A Depression, unspecified; J45.909 Unspecified asthma, uncomplicated; K21.9 Gastro-esophageal reflux disease without esophagitis; M19.90 Unspecified osteoarthritis, unspecified site; Z77.22 Contact with and (suspected) exposure to environmental tobacco smoke (acute) (chronic); Z79.82 Long term (current) use of aspirin; Z88.8 Allergy status to other drugs, medicaments and biological substances; Z88.1 Allergy status to other antibiotic agents; Z91.041 Radiographic dye allergy status
CPT/HCPCS: 99283; 71046; 80053; 81003; 81015; 83690; 84484; 85025; 87086; 93005

== ENCOUNTER → 2024-01-18 13:54 | Outpatient (REF) | payer MEDICARE, OTHER, SELFPAY | LOC: RCS 13:54 | PROVIDERS: ATTENDING PHYSICIAN Physician Assistant Medical; FAMILY PHYSICIAN Internal Medicine | DX: I30.9 Acute pericarditis, unspecified (principal) | CPT/HCPCS: 93306; Q9950 ==

== ENCOUNTER → 2024-03-01 08:10 | Outpatient (REF) | payer MEDICARE, OTHER, SELFPAY ==
[2024-03-01 09:11] LABS: % Basophils 0.4 % (0-2); % Eosinophils 3.3 % (0-6); % Immature Granulocytes 0.3 % (0-0.5); % Lymphocytes 22.9 % (20.5-51.1); % Monocytes 9.5 % (1.7-9.3); % Neutrophils 63.6 % (42.2-75.2); Absolute Eosinophils 0.3 10^3/uL (0-0.7); Absolute Lymphocytes 2.2 10^3/uL (1.2-3.4); Absolute Monocytes 0.9 10^3/uL (0.1-0.6); Absolute Neutrophils 6.1 10^3/uL (1.4-6.5); Hematocrit 39.6 % (37.0-47.0); Hemoglobin 13.4 g/dL (12.0-16.0); Mean Corp Hgb Conc. 33.8 g/dL (33.0-37.0); Mean Corpuscular Hgb 29.7 pg (27.0-31.0); Mean Corpuscular Volume 87.8 fL (81.0-99.0); Mean Platelet Volume 9.5 fL (7.4-10.4); Nucleated Red Blood Cells % 0 %; Platelet Count 185 10^3/uL (130-400); Red Blood Cell Count 4.51 10^6/uL (4.20-5.40); Red Cell Dist. Width 14.4 % (11.5-14.5); White Blood Cell Count 9.5 10^3/uL (4.8-10.8)
[2024-03-01 09:45] LABS: ALT (SGPT) 25 U/L (0-35); AST (SGOT) 28 U/L (14-36); Albumin 3.9 g/dl (3.5-5.0); Alkaline Phosphatase 79 U/L (38-126); Blood Urea Nitrogen 22 mg/dl (7-17); Carbon Dioxide 37 mmol/L (22-30); Chloride 99 mmol/L (98-107); Glucose 90 mg/dl (70-99); HDL Cholesterol 59 mg/dl; LDL Cholesterol, Calculated 83 mg/dl; Potassium 3.6 mmol/L (3.5-5.1); Sodium 138 mmol/L (135-145); Total Bilirubin 0.7 mg/dl (0.2-1.3); Total Cholesterol 175 mg/dl (50-199); Total Protein 6.3 g/dl (6.3-8.2); Triglyceride 169 mg/dl (10-149); Very Low Density Lipoprotein 33 mg/dl (0-30); eGFR > 60.00
[2024-03-01 10:39] LABS: TSH Reflex To Free T4 2.38 uIU/ml (0.47-4.68)
== END ==
LOC: REG 08:10
PROVIDERS: ATTENDING PHYSICIAN Internal Medicine
DX: I30.9 Acute pericarditis, unspecified (principal); I10 Essential (primary) hypertension; G47.33 Obstructive sleep apnea (adult) (pediatric); E78.00 Pure hypercholesterolemia, unspecified
CPT/HCPCS: 36415; 80053; 80061; 84443; 85025

== ENCOUNTER → 2024-03-30 13:52 | Outpatient (REF) | payer MEDICARE, OTHER, SELFPAY | LOC: WDC 13:52 | PROVIDERS: ATTENDING PHYSICIAN Internal Medicine | DX: Z12.31 Encounter for screening mammogram for malignant neoplasm of breast (principal); M85.80 Other specified disorders of bone density and structure, unspecified site; Z78.0 Asymptomatic menopausal state | CPT/HCPCS: 77063; 77067; 77080 ==

== ENCOUNTER → 2024-05-05 13:49 | Outpatient (REF) | payer MEDICARE, OTHER, SELFPAY | LOC: WDC 13:49 | PROVIDERS: ATTENDING PHYSICIAN Internal Medicine | DX: N64.4 Mastodynia (principal) | CPT/HCPCS: 76642 ==

== ENCOUNTER → 2024-05-27 09:45 | Outpatient (REF) | payer MEDICARE, OTHER, SELFPAY | LOC: RAD 09:45 | PROVIDERS: ATTENDING PHYSICIAN Internal Medicine Gastroenterology; FAMILY PHYSICIAN Internal Medicine | DX: E66.01 Morbid (severe) obesity due to excess calories (principal) | CPT/HCPCS: 76700 ==

== ENCOUNTER → 2024-06-01 11:55 | Outpatient (REF) | payer MEDICARE, OTHER, SELFPAY | LOC: RAD 11:55 | PROVIDERS: ATTENDING PHYSICIAN Internal Medicine Critical Care Medicine; FAMILY PHYSICIAN Internal Medicine | DX: R59.0 Localized enlarged lymph nodes (principal); R49.0 Dysphonia | CPT/HCPCS: 71250 ==

== ENCOUNTER → 2024-06-02 11:27 | Outpatient (REF) | payer MEDICARE, OTHER, SELFPAY | LOC: REG 11:27 | PROVIDERS: ATTENDING PHYSICIAN Internal Medicine Gastroenterology; FAMILY PHYSICIAN Internal Medicine | DX: R19.5 Other fecal abnormalities (principal) | CPT/HCPCS: 83993; 87045; 87046; 87324; 87328; 87329; 87427; 87449 ==

== ENCOUNTER 2024-06-10 06:26 | Day surgery (SDC) | payer MEDICARE, OTHER, SELFPAY ==
[2024-06-10 11:00] VITALS: BMI 40.0
[2024-06-10 11:10] VITALS: BP 150/57; BMI 40.0
[2024-06-10 12:49] VITALS: BP 113/60
[2024-06-10 13:00] VITALS: BP 120/105
[2024-06-10 13:15] VITALS: BP 101/61
== END 2024-06-10 13:32 | disposition home or self-care (01) ==
LOC: GI 06:26
PROVIDERS: ATTENDING PHYSICIAN Internal Medicine Gastroenterology
DX: K22.89 Other specified disease of esophagus (principal); K44.9 Diaphragmatic hernia without obstruction or gangrene; K31.89 Other diseases of stomach and duodenum; R19.7 Diarrhea, unspecified; R12 Heartburn; K29.50 Unspecified chronic gastritis without bleeding; L83 Acanthosis nigricans
CPT/HCPCS: 43239; 88305; 88342

== ENCOUNTER → 2024-08-01 06:46 | Outpatient (REF) | payer MEDICARE, OTHER, SELFPAY ==
[2024-08-01 08:14] LABS: ALT (SGPT) 20 U/L (0-35); AST (SGOT) 24 U/L (14-36); Albumin 3.4 g/dl (3.5-5.0); Alkaline Phosphatase 59 U/L (38-126); Blood Urea Nitrogen 20 mg/dl (7-17); Calcium 9.1 mg/dl (8.4-10.2); Carbon Dioxide 38 mmol/L (22-30); Chloride 97 mmol/L (98-107); Glucose 96 mg/dl (70-99); HDL Cholesterol 49 mg/dl; LDL Cholesterol, Calculated 79 mg/dl; Potassium 3.8 mmol/L (3.5-5.1); Sodium 139 mmol/L (135-145); Total Bilirubin 0.6 mg/dl (0.2-1.3); Total Cholesterol 145 mg/dl (50-199); Total Protein 5.8 g/dl (6.3-8.2); Triglyceride 88 mg/dl (10-149); Very Low Density Lipoprotein 17 mg/dl (0-30); eGFR > 60.00
== END ==
LOC: REG 06:46
PROVIDERS: ATTENDING PHYSICIAN Internal Medicine; REFERRING PHYSICIAN Internal Medicine Interventional Cardiology
DX: I10 Essential (primary) hypertension (principal); E66.9 Obesity, unspecified; K76.0 Fatty (change of) liver, not elsewhere classified; E78.2 Mixed hyperlipidemia
CPT/HCPCS: 36415; 80053; 80061

== ENCOUNTER → 2025-02-28 10:14 | Outpatient (REF) | payer MEDICARE, OTHER, SELFPAY ==
[2025-02-28 10:42] LABS: Hematocrit 38.9 % (37.0-47.0); Hemoglobin 13.1 g/dL (12.0-16.0); Mean Corp Hgb Conc. 33.7 g/dL (33.0-37.0); Mean Corpuscular Volume 86.8 fL (81.0-99.0); Nucleated Red Blood Cells % 0 %; Platelet Count 171 10^3/uL (130-400); Red Cell Dist. Width 13.7 % (11.5-14.5)
[2025-02-28 11:15] LABS: ALT (SGPT) 25 U/L (0-35); AST (SGOT) 30 U/L (14-36); Albumin 3.8 g/dl (3.5-5.0); Alkaline Phosphatase 61 U/L (38-126); Blood Urea Nitrogen 17 mg/dl (7-17); Calcium 9.1 mg/dl (8.4-10.2); Carbon Dioxide 34 mmol/L (22-30); Chloride 102 mmol/L (98-107); Glucose 104 mg/dl (70-99); HDL Cholesterol 52 mg/dl; LDL Cholesterol, Calculated 65 mg/dl; Potassium 3.1 mmol/L (3.5-5.1); Sodium 140 mmol/L (135-145); Total Protein 6.3 g/dl (6.3-8.2); Very Low Density Lipoprotein 20 mg/dl (0-30); eGFR > 60.00
== END ==
LOC: REG 10:14
PROVIDERS: ATTENDING PHYSICIAN Internal Medicine; REFERRING PHYSICIAN Internal Medicine Interventional Cardiology
DX: I10 Essential (primary) hypertension (principal); K21.9 Gastro-esophageal reflux disease without esophagitis; E78.2 Mixed hyperlipidemia; K57.92 Diverticulitis of intestine, part unspecified, without perforation or abscess without bleeding
CPT/HCPCS: 36415; 80053; 80061; 84443; 85025

== ENCOUNTER → 2025-03-27 07:30 | Outpatient (REF) | payer MEDICARE, OTHER, SELFPAY ==
[2025-03-27 09:20] LABS: Blood Urea Nitrogen 16 mg/dl (7-17); Calcium 9.3 mg/dl (8.4-10.2); Carbon Dioxide 35 mmol/L (22-30); Chloride 102 mmol/L (98-107); Glucose 89 mg/dl (70-99); Potassium 3.6 mmol/L (3.5-5.1); Sodium 139 mmol/L (135-145); eGFR > 60.00
== END ==
LOC: REG 07:30
PROVIDERS: ATTENDING PHYSICIAN Internal Medicine
DX: E87.6 Hypokalemia (principal)
CPT/HCPCS: 36415; 80048

== ENCOUNTER → 2025-03-31 12:53 | Outpatient (REF) | payer MEDICARE, OTHER, SELFPAY | LOC: WDC 12:53 | PROVIDERS: ATTENDING PHYSICIAN Internal Medicine | DX: Z12.31 Encounter for screening mammogram for malignant neoplasm of breast (principal); Z12.39 Encounter for other screening for malignant neoplasm of breast | CPT/HCPCS: 77063; 77067 ==

== ENCOUNTER → 2025-06-08 14:24 | Outpatient (REF) | payer MEDICARE, OTHER, SELFPAY | LOC: RAD 14:24 | PROVIDERS: ATTENDING PHYSICIAN Internal Medicine Critical Care Medicine; FAMILY PHYSICIAN Internal Medicine | DX: R49.0 Dysphonia (principal); R59.0 Localized enlarged lymph nodes | CPT/HCPCS: 71250 ==